=== PATIENT | male | born 2000 | race Caucasian/White ===

== ENCOUNTER 2022-01-31 11:14 | Emergency (ER) | payer OTHER ==
[2022-01-31 12:54] LABS: SARS-COV-2 RT PCR NEGATIVE (NEGATIVE)
--- NOTE | 2022-01-31 13:27 | ER ---
Nurse's Notes [facility] Name: Randy Smith Age: 21 yrs Sex: Male : 2000 Arrival Date: 01/31/2022 Time: 11:17 Bed 10 Private MD: Diagnosis: Influenza due to identified novel influenza A virus Presentation: 01/31 11:35 Chief complaint: Patient states: cough/congestion, chills, fever and body aches. Took vg1 Dayquil at 0830. Coronavirus screen: Vaccine status: Patient reports receiving the 2nd dose of the covid vaccine. Client denies travel out of the [place] in the last 14 days. Ebola Screen: Patient negative for fever greater than or equal to 101.5 degrees Fahrenheit, and additional compatible Ebola Virus Disease symptoms. Initial Sepsis Screen: Does the patient meet any 2 criteria? No. Patient's initial sepsis screen is negative. Does the patient have a suspected source of infection? No. Patient's initial sepsis screen is negative. Risk Assessment: Do you want to hurt yourself or someone else? Patient reports no desire to harm self or others. Onset of symptoms was January 29, 2022. 11:35 Method Of Arrival: Ambulatory vg1 11:35 Acuity: ISIS 4 vg1 Triage Assessment: 11:36 General: Appears in no apparent distress. uncomfortable, Behavior is calm, cooperative. vg1 Pain: Complains of pain in generalize body Pain currently is 5 out of 10 on a pain scale. Respiratory: Reports cough that is Airway is patent Respiratory effort is even, unlabored. GI: Patient currently denies diarrhea, nausea, vomiting. Historical: - Allergies: 11:36 No Known Allergies; vg1 - Home Meds: 11:36 None [Active]; vg1 - PMHx: 11:36 None; vg1 - PSHx: 11:36 None; vg1 - Immunization history:: Client reports receiving the 2nd dose of the Covid vaccine. - Social history:: Smoking status: Reported history of juuling and/or vaping. Patient uses street drugs, marijuana. Screenin:40 Abuse screen: Denies threats or abuse. Denies injuries from another. Nutritional ss screening: No deficits noted. Tuberculosis screening: Never had TB. Fall Risk None identified. Vital Signs: 11:35 BP 129 / 85; Pulse 93; Resp 16; Temp 99.0(O); Pulse Ox 99% on R/A; Weight 90.72 kg; vg1 Height 6 ft. 1 in. (185.42 cm); Pain 5/10; 11:35 Body Mass Index 26.39 (90.72 kg, 185.42 cm) vg1 ED Course: 11:17 Patient arrived in ED. am2 11:36 Amari Melendez is PHCP. jl9 11:36 Denzel Connelly MD is Attending Physician. jl9 11:36 Triage completed. vg1 11:36 Arm band placed on. vg1 11:41 COVID swab sent to lab. Flu and/or RSV swab sent to lab. vg1 13:40 Crystal Haque, RN is Primary Nurse. ss 13:40 Patient has correct armband on for positive identification. Bed in low position. ss 13:40 No provider procedures requiring assistance completed. Patient did not have IV access ss during this emergency room visit. Administered Medications: No medications were administered Outcome: 13:26 Discharge ordered by . 9 13:40 Discharged to home ambulatory. ss 13:40 Condition: good 13:40 Discharge instructions given to patient, family, Instructed on discharge instructions, follow up and referral plans. medication usage, Demonstrated understanding of instructions, follow-up care, medications, Prescriptions given X 2. 13:42 Patient left the ED. ss Signatures: Crystal Haque, RN RN Karoline Winston am2 Marie He RN RN vg1 Amari Melendez jl9
--- NOTE | 2022-01-31 13:27 | EDPHYS ---
Physician Documentation [facility] Name: Randy Smith Age: 21 yrs Sex: Male : 2000 Arrival Date: 01/31/2022 Time: 11:17 Bed 10 Private MD: ED Physician Denzel Connelly HPI: 01/31 13:24 This 21 yrs old Male presents to ER via Ambulatory with complaints of Fever, jl9 Runny Nose. 13:24 The patient reports fever, that was measured at 102 degrees Fahrenheit. Onset: The jl9 symptoms/episode began/occurred yesterday. Associated signs and symptoms: Pertinent positives: cough, runny nose. Historical: - Allergies: 11:36 No Known Allergies; vg1 - Home Meds: 11:36 None [Active]; vg1 - PMHx: 11:36 None; vg1 - PSHx: 11:36 None; vg1 - Immunization history:: Client reports receiving the 2nd dose of the Covid vaccine. - Social history:: Smoking status: Reported history of juuling and/or vaping. Patient uses street drugs, marijuana. ROS: 13:25 Eyes: Negative for injury, pain, redness, and discharge, ENT: Negative for injury, jl9 pain, and discharge, Neck: Negative for injury, pain, and swelling, Cardiovascular: Negative for chest pain, palpitations, and edema. 13:25 Abdomen/GI: Negative for abdominal pain, nausea, vomiting, diarrhea, and constipation, Back: Negative for injury and pain, : Negative for injury, bleeding, discharge, and swelling, MS/Extremity: Negative for injury and deformity, Skin: Negative for injury, rash, and discoloration, Neuro: Negative for headache, weakness, numbness, tingling, and seizure, Psych: Negative for depression, anxiety, suicide ideation, homicidal ideation, and hallucinations, Allergy/Immunology: Negative for hives, rash, and allergies, Endocrine: Negative for neck swelling, polydipsia, polyuria, polyphagia, and marked weight changes, Hematologic/Lymphatic: Negative for swollen nodes, abnormal bleeding, and unusual bruising. 13:25 Constitutional: Positive for fever. 13:25 Respiratory: Positive for cough. Exam: 13:25 Constitutional: This is a well developed, well nourished patient who is awake, alert, jl9 and in no acute distress. Head/Face: Normocephalic, atraumatic. Eyes: Pupils equal round and reactive to light, extra-ocular motions intact. Lids and lashes normal. Conjunctiva and sclera are non-icteric and not injected. Cornea within normal limits. Periorbital areas with no swelling, redness, or edema. ENT: Mucous membranes moist. Neck: Trachea midline, no thyromegaly or masses palpated, and no cervical lymphadenopathy. Supple, full range of motion without nuchal rigidity, or vertebral point tenderness. No Meningismus. Chest/axilla: Normal chest wall appearance and motion. Nontender with no deformity. No lesions are appreciated. Cardiovascular: Regular rate and rhythm with a normal S1 and S2. No gallops, murmurs, or rubs. Normal PMI, no JVD. No pulse deficits. Respiratory: Lungs have equal breath sounds bilaterally, clear to auscultation and percussion. No rales, rhonchi or wheezes noted. No increased work of breathing, no retractions or nasal flaring. Abdomen/GI: Soft, non-tender, with normal bowel sounds. No distension or tympany. No guarding or rebound. No evidence of tenderness throughout. Back: No spinal tenderness. No costovertebral tenderness. Full range of motion. Skin: Warm, dry with normal turgor. Normal color with no rashes, no lesions, and no evidence of cellulitis. MS/ Extremity: Pulses equal, no cyanosis. Neurovascular intact. Full, normal range of motion. Neuro: Awake and alert, GCS 15, oriented to person, place, time, and situation. Cranial nerves II-XII grossly intact. Motor strength 5/5 in all extremities. Sensory grossly intact. Cerebellar exam normal. Normal gait. Psych: Awake, alert, with orientation to person, place and time. Behavior, mood, and affect are within normal limits. Vital Signs: 11:35 BP 129 / 85; Pulse 93; Resp 16; Temp 99.0(O); Pulse Ox 99% on R/A; Weight 90.72 kg; vg1 Height 6 ft. 1 in. (185.42 cm); Pain 5/10; 11:35 Body Mass Index 26.39 (90.72 kg, 185.42 cm) vg1 MDM: 11:42 Patient medically screened. jose 13:25 Differential diagnosis: viral Infection, bacterial infection, URI. Data reviewed: vital jl9 signs, nurses notes. Counseling: I had a detailed discussion with the patient and/or guardian regarding: the historical points, exam findings, and any diagnostic results supporting the discharge/admit diagnosis, lab results, the need for outpatient follow up, to return to the emergency department if symptoms worsen or persist or if there are any questions or concerns that arise at home. 01/31 11:36 Order name: COVID-19/FLU A+B/RSV (Document "Date of Onset" if Symptomatic); Complete jl9 Time: 13:20 Administered Medications: No medications were administered Disposition Summary: 01/31/22 13:26 Discharge Ordered Location: Home jl9 Condition: Stable jl9 Diagnosis - Influenza due to identified novel influenza A virus jl9 Followup: jl9 - With: Private Physician - When: 1 - 2 days - Reason: Recheck today's complaints, Continuance of care, Re-evaluation by your physician Discharge Instructions: - Discharge Summary Sheet jl9 - Influenza, Adult, [id number] jl9 Forms: - Work release form ss - School release form ss - Medication Reconciliation Form jl9 - Thank You Letter jl9 - Antibiotic Education jl9 - Prescription Opioid Use jl9 Prescriptions: - Tamiflu 75 mg Oral capsule - take 1 capsule by ORAL route 2 times per day; 10 capsule; Refills: 0, Product jl9 Selection Permitted - [id number] 2-30-10 mg/5 mL Oral syrup - take 10 milliliter by ORAL route every 4 hours As needed; 100 milliliter; jl9 Refills: 0, Product Selection Permitted Addendum: 02/04/2022 09:42 Co-signature as Attending Physician, Denzel Connelly MD I agree with the assessment and c conklin plan of care. Signatures: Dispatcher [employer] Denzel Benoit MD MD cha Garcia, Victoria, RN RN vg1 Amari Melendez jl9
[2022-01-31 13:47] VITALS: BP 129/85; TEMP 99; O2SAT 99
== END 2022-01-31 13:42 | disposition home or self-care (01) ==
LOC: ER 11:14
DX: J10.1 Influenza due to other identified influenza virus with other respiratory manifestations (principal); Z20.822 Contact with and (suspected) exposure to COVID-19
CPT/HCPCS: 0241U; 99283